=== PATIENT | male | born 1970 | race Caucasian/White ===

== ENCOUNTER 2017-08-08 16:30 | Outpatient (RCR) | payer OTHER, SELFPAY ==
--- NOTE | 2017-07-08 17:34 | HP.PTEVAL_ITS ---
Patient's Visit Information BRET ORTEZ is a 46 year old M referred to Physical Therapy by Michel MOON with a diagnosis of LEFT ACHILLES TENDON PAIN. Date of Evaluation: 07/08/17 Physical Therapist: Orlando Smith, PT, - Visit Plan Frequency: 2x /Week Duration: 4 Weeks Plan: ECCENTRIC EX'S CALF,MANUAL THERAPY HAWK- ACHILLES,STICK CAF,US ,CP , ESTIM. STRECTCING CALF/ACHILLES - Subjective Subjective: This 46 y/o male presents to physical therapy for left achilles tendon pain for 3months. No reason for pain ,noticed lump with soreness. Patient symptoms with on feet all day ,activity with sitting. Denies parathesia/ tingling. Symptoms affect job demands and housework tasks. SOCAIL: . VOCATION: ecletrician. HOBBIES: golfing - Pain Left Foot Pain Intensity (Out of 10): 6 Pain Intensity Range: 10 - Objective POSTURE: normal frontal plane mild pes planus. GAIT: normal odalis. PALPATION : DISTAL 1/3 ACHILLES TENDER. AROM: dorsiflexion 5 degrees,plantarflexion 60 degrees,inversion 35 degrees,10 eversion. MMT:ANKLE DF/PF/EV/IN /5. NUERO: inact. -ZAMORA TEST - Goals Goal 1:: Independant with HEP Goal Time Frame: 4-6 Weeks Goal 2:: Decrease left achilles pain by 60% or greater to improve function with walking and standing. Goal Time Frame: 4-6 Weeks Goal 3:: Patient to have no tenderness with palpation of achilles tendon. Goal Time Frame: 4-6 Weeks Goal 4:: Patient be able to perform ADLS' and job demands with symptoms Goal Time Frame: 4-6 Weeks - Rehabilitation Potential Physical Therapy Diagnosis: This patient has left achilles tendonesis with apin and tendeness ,thus benifit from skilled PT. Rehabilitation Potential: Good - Anticipated Interventions Patient/Client Instruction: Educate patient on: Condition, Plan of Care For the Purpose of:: To decrease pain, To increase ROM, To improve muscle performance and motor function, To increase tolerance to activity/condition/ position, To improve performance and independence with ADL's, To improve ability of physical actions for home/community/work/leisure, To improve health of tissue, To decrease soft tissue restriction, To increase flexibility/ROM, To improve ability to perform tasks related to life management Therapeutic Exercise to Include: Strength training, Flexibilty training Comment: ECCENTRICS For the Purpose of:: To decrease pain, To increase ROM, To improve nutrient delivery to tissue, To increase oxygenation perfusion, To improve muscle performance and motor function, To increase tolerance to activity/condition/ position, To improve ability of physical actions for home/community/work/leisure , To improve health of tissue, To decrease soft tissue restriction, To increase flexibility/ROM, To prevent re-injury, To improve ability to perform tasks related to life management Manual Therapy Techniques to Include: Soft tissue mobilization, Other Comment: HAWK ACHILLES For the Purpose of:: To decrease pain, To decrease swelling/inflammation, To increase ROM, To improve nutrient delivery to tissue, To increase oxygenation perfusion, To improve health of tissue, To decrease soft tissue restriction, To increase flexibility/ROM TENS: Yes Cryotherapy (ice pack, ice massage): Yes Thermo therapy (hot pack): Yes Ultrasound (thermal/non thermal): Yes For the Purpose of:: To decrease pain, To increase ROM, To improve nutrient delivery to tissue, To increase oxygenation perfusion, To improve health of tissue, To decrease soft tissue restriction, To increase flexibility/ROM Thank you for the opportunity to evaluate your patient. For Medicare and Medicare HMO plans, please review the plan of care and approve it. It will need to be FAXED BACK to us at [phone] for Medicare purposes. Please let me know if there are questions or concerns regarding this plan of care. Physician Signature: Date:
--- NOTE | 2017-08-08 18:06 | HP.PTDCSUM_ITS ---
HP - PT D/C Summary It has been my pleasure to treat BRET ORTEZ under orders from Michel Page , for the diagnosis of LEFT ACHILLES TENDON PAIN for a total of 9 visit(s). Discharge Date: 08/08/17 Please see the following information for a summary of their discharge status. - Subjective Subjective: doing better.I was on my feet alot past 4 days. - Pain Left Foot Pain Intensity (Out of 10): 1 - Objective Objective/Function: GAIT: NORMAL GAIT. NEURO:INACT. PAPALTION: less nodule achilles,with less tenderness. MMT: 4/5 ankle. FLEXABLITY: G-S WFL - Goals Goal 1:: Independant with HEP Goal Progress: Goal Met Goal 2:: Decrease left achilles pain by 60% or greater to improve function with walking and standing. Goal Progress: Goal Met Goal 3:: Patient to have no tenderness with palpation of achilles tendon. Goal Progress: Goal Met Goal 4:: Patient be able to perform ADLS' and job demands with symptoms Goal Progress: Goal Met Goal Progress: Goal Met - Plan Plan: D/C TO HEP - D/C Information If there are questions or concerns regarding this patient's physical therapy, please feel free to call me at [phone]. Thank you for the referral of this patient. Sincerely, Orlando Smith, PT,
== END 2017-08-08 19:00 | disposition home or self-care (01) ==
LOC: PT 16:30
PROVIDERS: Family Provider Family Medicine; PCP Family Medicine; Visit Provider Family Medicine
DX: M79.672 Pain in left foot (principal)
CPT/HCPCS: 97035; 97110; 97140; 97161

== ENCOUNTER → 2020-07-12 07:53 | Outpatient (CLI) | payer OTHER, SELFPAY ==
[2019-01-22 09:42] VITALS: BMI 33.1
--- NOTE | 2020-07-12 08:10 | RAD_ITS ---
STUDY: X-RAY - ESOPHAGUS (BARIUM SWALLOW) WITH FLUOROSCOPY REASON FOR EXAM: Male, 49 years old. Dysphagia TECHNIQUE: 13 view(s) of the esophagus were obtained following swallowing of barium. FLUOROSCOPY TIME (if supplied): (0:34) minutes/seconds COMPARISON: None. FINDINGS: There is no demonstrated esophageal foreign body. There is no demonstrated stricture or mucosal abnormality. Normal gastroesophageal junction, without a demonstrated hiatal hernia. The patient ingested a 12 mm tablet of barium. The tablet is trapped at the gastroesophageal junction. Normal visualized aortic arch and descending thoracic aorta. Normal visualized pulmonary parenchyma. Normal visualized osseous structures of the thorax. RAD/Esophagus Dual Contrast IMPRESSION: The ingested 12 mm tablet of barium is trapped at the gastroesophageal junction. Electronically Signed: Ortiz Contreras MD at 13:47 EDT , Service support ,
== END ==
PROVIDERS: PCP Family Medicine; Referring Provider Family Medicine; Visit Provider Family Medicine
DX: R13.10 Dysphagia, unspecified (principal)
CPT/HCPCS: 74221

== ENCOUNTER 2020-08-15 09:17 | Day surgery (SDC) | payer OTHER, SELFPAY ==
[2019-01-22 09:42] VITALS: BMI 33.1
[2020-08-15] VITALS (8 sets, daily range): BP systolic 93–141; BP diastolic 67–87; PULSE 66–78; RESP 16–18; TEMP 36.3–37; O2SAT 95–100; BMI 32.5
--- NOTE | 2020-08-15 | GASB_PTH ---
PATIENT: BRET ORTEZ LOC: U#:[id number] AGE/SX: 49/M ROOM: RE08/15/[address]: Dr. Olimpia Ragsdale MD : 1970 BED: DIS: 08/15/2020 SPEC #: [id number] RECD: 08/15/20 13:37 STATUS: SENG REQ #: [id number] SENTHIL: 08/15/20 00:[address]: Olimpia Ragsdale DEPT: SURGICAL PATHOLOGY RECD BY: Xavier Richardson ENTERED: 08/15/20 13:38 SP TYPE: Gastric Bx OTHR DR: Dr. Michel Page MD Tissues: Gastric mucous membrane Procedures: Surgery Specimen Level IV HEADER OPERATION: [place] [place] DIAGNOSIS: Foreign body TISSUE SUBMITTED: Antrum biopsy for H. pylori and path MICROSCOPIC DIAGNOSIS Gastric antrum, biopsy: Chronic gastritis. See comment. AM:yosvany 08/16/2020 COMMENT The results of immunohistochemistry for Helicobacter pylori will be reported separately ([id number]). MICROSCOPIC DESCRIPTION Slides are reviewed. GROSS DESCRIPTION Received in fixative is one container labeled with the patient's name and designated antrum biopsy. The specimen consists of one irregular fragment of light kauffman soft tissue that measures 0.3 x 0.3 x 0.1 cm. The specimen is totally submitted in one cassette. / SJ:rg 08/15/20 TC:3 CPT: 81111
--- NOTE | 2020-08-15 09:28 | EDS_ITS ---
HPI History of Present Illness Chief Complaint: Foreign Body Detail of Chief Complaint: Food impaction since last evening Informant: patient Onset/Context/Timing Onset: Yesterday Narrative Narrative: Patient was eating fried chicken from [employer] fried chicken last evening when he had an episode of food getting stuck in his throat. Patient states that he was initially able to clear the food impaction and and continue to eat and food got stuck once again in his throat. Patient has been unable to swallow liquids since that time. He has vomited more than 12 times. He denies any real abdominal pain. Patient has had problems with swallowing in the past and is scheduled to see a chainstitch felled seam operator but has not established as of yet. Patient is never had an EGD. Patient has had swallow evaluations. Patient states that he is normally able to clear the obstruction however this time he has been unable to. Prior similar symptoms: Yes PFSH PFSH Medical History (Updated 08/15/20 @ 09:[address] Sherri Garcia DO) ACL tear Hypersomnia Knee effusion Medial meniscus tear DIEGO (obstructive sleep apnea) Pain in joint involving lower leg Rotator cuff syndrome of right shoulder Shoulder pain Sprain and strain of unspecified site of knee and leg Home Medications multivitamin,zj-imcu-esaxzvxg 1 tab PO QDAY 05/30/17 [History Last Taken Unknown] Allergy/AdvReac Type Severity Reaction Status Date / Time No Known Allergies Allergy Verified 08/15/20 09:20 Family History Mother Heart disease Arthritis Ovarian cancer Surgical History (Updated 01/22/19 @ 15:[address] Dioni Wharton MD) history of ACL bilateral repair History of inguinal hernia repair Social History (Updated 01/22/19 @ 15:[address] Dioni Wharton MD) second hand exposure: No alcohol intake: never substance use type: does not use caffeine: No what type of physical activity do you participate in: walking frequency: daily ROS ROS ED Constitutional Constitutional ED: Reports systems reviewed and no addt'l complaints, except as documented; Denies body ache(s), change in weight or chills Eyes Eyes: Denies acute decrease in peripheral vision, change in vision, double vision or loss of vision ENT ENT ED: Reports none; Denies ear pain, lip swelling, loss taste/smell, neck pain, otalgia or sore throat Cardiovascular Cardiovascular: Reports none; Denies abdominal pain, chest pain with activity, leg edema, lightheadedness, palpitations, rapid heart rate or syncope Respiratory/Chest Respiratory/Chest: Reports none; Denies change in mental status, dry cough, dyspnea, hemoptysis, shortness of breath at rest or shortness of breath with exertion Gastrointestinal Gastrointestinal: Reports none, vomiting and other Details: Patient unable to swallow ; Denies abdominal pain, change in stool character, diarrhea, hematemesis, hematochezia, melena or rectal bleeding Genitourinary Genitourinary ED: Reports none; Denies abdominal discomfort, anuria, dysuria, genital pain or polyuria Musculoskeletal Musculoskeletal: Reports none; Denies arthralgias, back pain, difficulty walking, extremity pain, muscle weakness or myalgias Integumentary Reports none; Denies abscess or rash Neurologic Neurologic: Reports none; Denies abnormal gait, confusion, focal weakness, frequent falls, headache(s), loss of vision, numbness, paresthesias, radicular pain, vertigo or weakness Psychiatric Psychiatric: Reports systems reviewed and no addt'l complaints, except as documented and none; Denies behavioral changes, confusion, difficulty concentrat ing, hallucinations, suicidal ideation, tactile hallucinations or visual hallucinations Endocrine Endocrinology: Denies none, cold intolerance, excessive sweating, fatigue or heat intolerance Hematologic/Lymphatic Hematologic/Lymphatic: Reports none; Denies anemia, easy bleeding or easy bruising Allergic/Immunologic Allergic/Immunologic ED: Denies as per HPI, none, lip swelling, mouth swelling, throat swelling, tongue swelling or hives EXAM Physical Exam Const Vital Signs: 08/15/20 09:17 Temperature 97.6 F L Temperature Source Temporal Pulse Rate 73 Respiratory Rate 18 Blood Pressure 141/79 H Blood Pressure Mean 99 Pulse Ox 95 Oxygen Delivery Method Room Air Positive well nourished and well developed General Appearance ED: well developed and NAD HEENT Reports TM's clear and moist mucous membranes normocephalic and atraumatic; Negative for trauma or tenderness Tympanic Membrane ED: Yes TM's clear Eyes PERRL and EOMs intact bilaterally General Eye ED: Negative for pale conjunctiva or scleral icterus Neck no lymphadenopathy, supple and no JVD General: Negative for tenderness Chest Wall inspection of chest normal and palpation of chest normal Chest: Negative for tenderness Resp normal respiratory effort and clear to auscultation bilaterally Effort and Inspection: Negative for respiratory distress or pain with movement Auscultation: Negative for rhonchi, wheezes or diminished lung sounds Cardio regular rate, regular rhythm, S1 normal heart sound, S2 normal heart sound and no murmurs Peripheral Pulses: pulses 2+ throughout GI normal to inspection, nondistended, normoactive bowel sounds, soft to palpation, non-tender, non-distended and no masses Back/Spine no CVA tenderness and no thoracic nor lumbar tenderness Extremity normal to inspection General Extremety ED: Negative for edema General Extremity: Negative for edema Neuro oriented x3, CN's II-XII intact bilaterally, no sensory deficits noted and gait normal Sensorium / Orientation: awake, alert, oriented to person, oriented to place and oriented to time Motor Exam: strength 5/5 throughout and strength abnormal Psych mental status grossly normal Skin no rashes or lesions noted and no wounds MDM MDM MDM Narrative Medical decision making narrative: Patient will receive glucagon IV. He was unable to swallow fluids here. Case discussed with general surgeon on-call Dr. Olimpia Ragsdale who will take patient to endoscopy suite for EGD. Discharge Plan Triage Chief Complaint: Foreign Body ED Provider: Sherri Garcia Dx/Rx/DC Orders Clinical Impression: Distal esophageal obstruction due to foreign body Prescriptions: No Action multivitamin,as-jxpe-sfajkyvm tablet tablet 1 tab PO QDAY RF: 0 Primary Care Provider: Michel Page Referrals: Michel Page MD [Primary Care Provider] - Disposition Disposition: [facility]
--- NOTE | 2020-08-15 09:51 | NURSING ---
ENDO .. AC 5 ROBOTHAM FB REMOVAL
[2020-08-15] MEDS: Glucagon 1 MG/ML Syringe 2 MG IV (09:53)
--- NOTE | 2020-08-15 09:57 | HP.PCM_ITS ---
HPI - General HPI Narrative BRET ORTEZ, is a 49 M who presents to the ED with esophageal foreign body. Patient states he had chicken for dinner last night. A single piece of chicken was stuck and he was able to eventually have this go down. He continued to eat however the remaining pieces of chicken became lodged. He tried water without success. He noted nausea and vomiting up until 0500 AM this morning attempting to dislodge the chicken. He does not take any routine medications daily. He states this typically happens at least once per week. he is able to resolve the issue without coming into the hospital. His PCP ordered a barium swallow which was completed on 07/12 and demonstrated the Barium tablet was lodged at the GE junction. He was scheduled an appointment with Dr. Mitchell at the end of this month. He denies cardiac, pulmonary history. He denies previous complications with anesthesia. [facility] Medical History ACL tear Hypersomnia Knee effusion Medial meniscus tear DIEGO (obstructive sleep apnea) Pain in joint involving lower leg Rotator cuff syndrome of right shoulder Shoulder pain Sprain and strain of unspecified site of knee and leg Home Medications multivitamin,ab-ills-frrhkbka 1 tab PO QDAY 05/30/17 [History Last Taken Unknown] Allergy/AdvReac Type Severity Reaction Status Date / Time No Known Allergies Allergy Verified 08/15/20 09:20 Family History Mother Heart disease Arthritis Ovarian cancer Surgical History history of ACL bilateral repair History of inguinal hernia repair Social History (Updated 01/22/19 @ 15:[address] Dioni Wharton MD) Smoking Status: Never smoker second hand exposure: No alcohol intake: never substance use type: does not use caffeine: No what type of physical activity do you participate in: walking frequency: daily ROS Constitutional Constitutional: Reports systems reviewed and no addt'l complaints, except as documented Eyes Eyes: Reports systems reviewed and no addt'l complaints, except as documented ENT HEENT: Reports sore throat Cardiovascular Cardiovascular: Reports systems reviewed and no addt'l complaints, except as documented Respiratory/Chest Respiratory/Chest: Reports systems reviewed and no addt'l complaints, except as documented Gastrointestinal Gastrointestinal: Reports dysphagia Genitourinary Genitourinary: Reports none Musculoskeletal Musculoskeletal: Reports none Integumentary Integumentary: Reports none Neurologic Neurologic: Reports none Psychiatric Psychiatric: Reports none Endocrine Endocrinology: Reports none Hematologic/Lymphatic Hematologic/Lymphatic: Reports none Allergic/Immunologic Allergic/Immunologic: Reports none Vital Signs Vital Signs Vital Signs: 08/15/20 09:17 08/15/20 09:55 Temperature 97.6 F L Temperature Source Temporal Pulse Rate 73 Respiratory Rate 18 Respiratory Effort Normal Non-Labored Respiratory Pattern Normal Blood Pressure 141/79 H Blood Pressure Mean 99 Pulse Ox 95 Oxygen Delivery Method Room Air Physical Exam Const alert and oriented x3 General Appearance: cooperative, comfortable, well kempt and well developed HEENT normocephalic Eyes PERRL Neck Thyroid: Negative for mass Carotids: normal carotid upstroke Lymph Lymphatic: no lymphadenopathy noted Chest inspection of chest normal Resp normal respiratory effort and normal air movement Cardio regular rate and regular rhythm GI normal to inspection, nondistended, normoactive bowel sounds no CVA tenderness Back/Spine Cervical Spine: cervical ROM normal Thoracic Spine / Upper Back: normal to inspection Extremity normal to inspection Skin no rashes or lesions noted Neuro CN's II-XII intact bilaterally Psych mental status grossly normal Assessment & Plan Assessment/Plan (1) Distal esophageal obstruction due to foreign body: Status: Acute Code(s): T18.108A - Unspecified foreign body in esophagus causing other injury, initial encounter Plan: I am following this patient in conjunction with Dr. Ragsdale. I have discussed this patient with Dr. Ragsdale. Dr. Ragsdale will plan to perform an upper scope with foreign body removal under MAC sedation. Procedure details, risks and benefits have been explained to the patient. His is an RN at [employer]. Patient and his have had the opportunity to ask and have questions answered. Patient verbally understands and agrees with the plan. Patient has completed is 2nd COVID vaccine approximately 2 weeks ago. He did obtain a COVID test in the ED. ED physician ordered glucagon. Thank you for allowing us to participate in this patient's care. Visit Charges OBSV E&M: 85303 Initial observation care L2
--- NOTE | 2020-08-15 10:58 | OP.EGD_ITS ---
Patient Name: Hima Veloz Procedure Date: 08/15/2020 10:34 AM Date of : 1970 Age: 49 Procedure: Upper GI endoscopy Indications: Foreign body in the esophagus Providers: Olimpia Ragsdale MD Medicines: Monitored Anesthesia Care Patient Profile: This is a 49 year old male. Complications: No immediate complications. Procedure: Pre-Anesthesia Assessment: - Prior to the procedure, a History and Physical was performed, and patient medications and allergies were reviewed. The patient's tolerance of previous anesthesia was also reviewed. The risks and benefits of the procedure and the sedation options and risks were discussed with the patient. All questions were answered, and informed consent was obtained. Prior Anticoagulants: The patient has taken no previous anticoagulant or antiplatelet agents. ASA Grade Assessment: Per anesthesia. After reviewing the risks and benefits, the patient was deemed in satisfactory condition to undergo the procedure. After obtaining informed consent, the endoscope was passed under direct vision. Throughout the procedure, the patient's blood pressure, pulse, and oxygen saturations were monitored continuously. The gastroscope was introduced through the mouth, and advanced to the second part of duodenum. The upper GI endoscopy was accomplished without difficulty. The patient tolerated the procedure well. Scope In: 10:40:08 AM Scope Out: 10:50:33 AM Total Procedure Duration Time 0 hours 10 minutes 25 seconds Findings: Food was found in the distal esophagus. The endoscope was removed, and an overtube with cap was fitted. The scope and overtube were then reinserted via the mouth and advanced to the esophagus to aid in foreign body removal. Removal was accomplished with a Quevedo net. The examined duodenum was normal. Striped moderately erythematous mucosa was found in the gastric antrum. Biopsies were taken with a cold forceps for histology. Biopsies were taken with a cold forceps for Helicobacter pylori cultures. No obvious stricture seen at GEJ Impression: - Food was found in the esophagus. Removal was successful. - Normal examined duodenum. - Erythematous mucosa in the antrum. Biopsied. - An overtube with cap was used to aid in foreign body removal. Recommendation: - Discharge patient to home. - Soft diet. - Use Protonix (pantoprazole) 40 mg PO daily. - Continue present medications. Procedure Code(s): --- Professional --- 88208, Esophagogastroduodenoscopy, flexible, transoral; with removal of foreign body(s) 55664, Esophagogastroduodenoscopy, flexible, transoral; with biopsy, single or multiple Diagnosis Code(s): --- Professional --- T18.128A, Food in esophagus causing other injury, initial encounter K31.89, Other diseases of stomach and duodenum T18.108A, Unspecified foreign body in esophagus causing other injury, initial encounter CPT copyright 2017 [employer]. All rights reserved. The codes documented in this report are preliminary and upon table maker review may be revised to meet current compliance requirements. MD Olimpia Ventura MD 08/15/2020 10:58:18 AM This report has been signed electronically. Number of Addenda: 0 Note Initiated On: 08/15/2020 10:34 AM
--- NOTE | 2020-08-15 10:58 | OP.CCLET_ITS ---
08/15/2020 Michel Page MD [address] [id number] Re : Upper GI endoscopy procedure for Hima Veloz Dear Dr. Page This procedure was performed on Saturday, August 15, 2020. My impressions and recommendations are as follows: Impressions : - Food was found in the esophagus. Removal was successful. - Normal examined duodenum. - Erythematous mucosa in the antrum. Biopsied. - An overtube with cap was used to aid in foreign body removal. Recommendations : - Discharge patient to home. - Soft diet. - Use Protonix (pantoprazole) 40 mg PO daily. - Continue present medications. My findings are described in the full procedure note, which is enclosed. If I can be of further assistance, please feel free to contact me at Doctor phone number(s): , Work: . Sincerely, MD Olimpia Ventura MD 08/15/2020 10:58:18 AM This report has been signed electronically.
--- NOTE | 2020-08-15 11:15 | IMM_PTH ---
PATIENT: BRET ORTEZ LOC: U#:[id number] AGE/SX: 49/M ROOM: RE08/15/[address]: Dr. Olimpia Ragsdale MD : 1970 BED: DIS: 08/15/2020 SPEC #: [id number] RECD: 08/15/20 14:16 STATUS: SENG REQ #: [id number] SENTHIL: 08/15/20 11:[address]: Olimpia Ragsdale DEPT: IMMUNOHISTOCHEMISTRY RECD BY: Alecia Carnes ENTERED: 08/15/20 14:16 SP TYPE: IMMUNO OTHR DR: Dr. Michel Page MD Tissues: Stomach, NOS Procedures: H Pylori (initial) PHYSICIAN & INSTITUTION [place] [id number] SPECIMEN INFORMATION: Tissue Source: Antrum biopsy Clinical Info: Foreign body Specimen Number: [id number] CPT code: 13601 METHODOLOGY: Deparaffinized sections of prefer/formalin-fixed tissue or PAP/DQ stained slides are incubated with monoclonal/polyclonal antibodies/oligonucleotide probes. Localization is made via biotin free immunoperoxidase method. Appropriate controls are performed and reacted as expected. Results on target cell population are indicated in the following table: RESULTS: ANTIBODY / CLONE RESULT H Pylori (polyclonal) negative These tests were developed and their performance characteristics determined by [facility]. They may not have been cleared or approved by the U.S. Food and Drug Administration. The FDA has determined that such clearance or approval is not necessary. INTERPRETATION: Antrum biopsy: Negative for Helicobacter pylori organisms. AM:yosvany 08/17/2020
== END 2020-08-15 11:55 ==
LOC: ED 09:54 → AC 09:56 → ACINP 09:57
PROVIDERS: Emergency Provider Emergency Medicine; PCP Family Medicine; Visit Provider Surgery
PROC: 0DJ08ZZ Inspection of Upper Intestinal Tract, Via Natural or Artificial Opening Endoscopic (ICD-10-PCS; CPT 43235; principal; 2020-08-15 11:10)
DX: T18.118A Gastric contents in esophagus causing other injury, initial encounter (principal); K29.50 Unspecified chronic gastritis without bleeding
CPT/HCPCS: 43239; 43247; 87426; 88305; 88342; 99282; J7030; J1610; J2405

== ENCOUNTER 2021-02-16 07:00 | Outpatient (RCR) | payer OTHER, SELFPAY ==
[2019-01-22 09:42] VITALS: BMI 33.1
--- NOTE | 2021-03-27 17:24 | DS.PCM_ITS ---
Massage Therapy Discharge Summary: Initial Evaluation Date: 07/14/20 Diagnosis: Back Pain No. of Visits: 7 Date of last visit: 02/16/21 This patient is being discharged from our care at the [facility]. Thank you, Renee Reddy LMT
== END 2021-02-16 19:00 | disposition home or self-care (01) ==
LOC: MASS 07:00
PROVIDERS: PCP Family Medicine; Referring Provider Family Medicine; Visit Provider Family Medicine
DX: M54.9 Dorsalgia, unspecified (principal)
CPT/HCPCS: 97124

== ENCOUNTER → 2022-01-25 | Outpatient (CLI) | payer OTHER, SELFPAY ==
[2022-01-25 11:24] LABS: Anion Gap 7 (5-15); BUN 25 mg/dL (7-18); BUN/Creat Ratio 23.6 RATIO (10-20); Calcium,Total 9.4 mg/dL (8.5-10.1); Chloride 109 mmol/L (98-107); Cholesterol 151 mg/dL (200); Creatinine, Serum 1.06 mg/dL (0.70-1.30); EST Glomerular Filtration Rate 79 mL/min (>60); Est Glom Filt Rate - Afr Amer 95 mL/min (>60); Glucose 108 mg/dL (74-106); High Density Lipoprotein 38 mg/dL; PSA,Total - Annual Screen 7.85 ng/mL (0.00-4.00); Potassium 4.2 mmol/L (3.5-5.1); Sodium Level 140 mmol/L (136-145); Triglycerides 67 mg/dL; Very Low Density Lipoprotein 13 mg/dL (5-40)
== END | disposition home or self-care (01) ==
LOC: MFPLAB 09:03
PROVIDERS: PCP Family Medicine; Referring Provider Family Medicine; Visit Provider Family Medicine
DX: Z00.00 Encounter for general adult medical examination without abnormal findings (principal); Z12.5 Encounter for screening for malignant neoplasm of prostate
CPT/HCPCS: 36415; 80048; 80061; 84153; 84403; 84443; G0103

== ENCOUNTER → 2022-03-05 | Outpatient (CLI) | payer OTHER, SELFPAY ==
--- NOTE | 2022-03-05 17:55 | MRI_ITS ---
STUDY: MR PELVIS WITH T WITHOUT CONTRAST REASON FOR EXAM: Male, 51 years old. ELEVATED PROSTATE SPECIFIC ANTIGEN TECHNIQUE: Standardized fat and water weighted pulse sequences were obtained in all 3 orthogonal planes, pre-and post contrast administration. with and without IV 24ML CLARISCAN contrast material was administered intravenously for the contrast portion of the examination. COMPARISON: None. FINDINGS: Normal urinary bladder. Normal visualized colon. Prostate gland: 10 mm well circumscried lesion in the right peripheral zone. Se 11 IM 29. It has increased DWI signal and low ADC signal. No significant enhancement. PZpl right. The anterior fibromuscular stroma and central zone appear intact. The central gland demonstrates normal signal characteristics. Rectum is unremarkable. Levator ani muscle is not disrupted. The distal urethra is surrounded by the low T2 signal intensity muscle which is the external urethral sphincter as noted on the coronal images. The penile bulb is embraced by an intact inferomedial levator ani muscle. No areas of abnormal enhancement. Normal visualized neurovascular bundles. There is no pelvic fluid. There is no pelvic mass lesion or lymphadenopathy. Normal visualized pelvic arteries. Normal osseous structures. Normal abdominal wall. MRI/Pelvis W/WO Contrast IMPRESSION: There is a mass in the right peripheral zone PZpl measuring 10 mm. Assessment: PIRADS 4 - High. Clinically significant cancer is likely to be present. Electronically Signed: Arben Brunner MD at 15:41 EST ,
== END | disposition home or self-care (01) ==
PROVIDERS: PCP Family Medicine; Referring Provider Urology; Visit Provider Urology
DX: R97.20 Elevated prostate specific antigen [PSA] (principal)
CPT/HCPCS: 72197; A9575

== ENCOUNTER → 2022-03-13 | Outpatient (CLI) | payer OTHER, SELFPAY ==
--- NOTE | 2022-03-13 | IMM_PTH ---
PATIENT: BRET ORTEZ LOC: [facility] U#:[id number] AGE/SX: 51/M ROOM: RE03/13/[address]: Dr. Edmond Dela Cruz MD : 1970 BED: DIS: 03/13/2022 SPEC #: [id number] RECD: 03/15/22 13:48 STATUS: SENG REQ #: [id number] SENTHIL: 03/13/22 00:[address]: Edmond Dela Cruz DEPT: IMMUNOHISTOCHEMISTRY RECD BY: Alecia Carnes ENTERED: 03/15/22 13:50 SP TYPE: IMMUNO OTHR DR: Dr. Michel Page MD Tissues: A - PROSTATE RIGHT B - PROSTATE RIGHT C - PROSTATE RIGHT D - PROSTATE LEFT E - PROSTATE LEFT F - PROSTATE LEFT Procedures: 34BE12 (add) P40 (add) 34BE12 (initial) PHYSICIAN & INSTITUTION [place] [id number] SPECIMEN INFORMATION: Tissue Source: A - Right apex, B - Right mid, C - Right base, D - Left apex, E - Left mid, F - Left base Clinical Info: Elevated PSA Specimen Number: [id number] CPT code: 23267, 11929 x11 METHODOLOGY: Deparaffinized sections of prefer/formalin-fixed tissue or PAP/DQ stained slides are incubated with monoclonal/polyclonal antibodies/oligonucleotide probes. Localization is made via biotin free immunoperoxidase method. Appropriate controls are performed and reacted as expected. Results on target cell population are indicated in the following table: RESULTS: ANTIBODY / CLONE RESULT Block A P40 (BC28) negative 34BE12 (34BE12) negative Block B P40 (BC28) negative 34BE12 (34BE12) negative Block C P40 (BC28) negative 34BE12 (34BE12) negative Block D P40 (BC28) positive 34BE12 (34BE12) positive Block E P40 (BC28) positive 34BE12 (34BE12) positive Block F P40 (BC28) positive 34BE12 (34BE12) positive These tests were developed and their performance characteristics determined by [facility]. They may not have been cleared or approved by the U.S. Food and Drug Administration. The FDA has determined that such clearance or approval is not necessary. The above immunohistochemical/dualISH markers are ordered and reviewed by the Pathologist. INTERPRETATION: A. Right prostate, apex, core biopsy: Consistent with atypical small acinar proliferation. B. Right prostate, mid, core biopsy: Adenocarcinoma. C. Right prostate, base, core biopsy: Adenocarcinoma. D. Left prostate, apex, core biopsy: Negative for carcinoma. E. Left prostate, mid, core biopsy: Negative for carcinoma. F. Left prostate, base, core biopsy: Negative for carcinoma. AM:yosvany 03/16/2022
--- NOTE | 2022-03-13 08:00 | PROSBIL_PTH ---
PATIENT: BRET ORTEZ LOC: [facility] U#:[id number] AGE/SX: 51/M ROOM: RE03/13/[address]: Dr. Edmond Dela Cruz MD : 1970 BED: DIS: 03/13/2022 SPEC #: [id number] RECD: 03/13/22 16:17 STATUS: SENG REGisselle #: [id number] SENTHIL: 03/13/22 08:[address]: Edmond Dela Cruz DEPT: SURGICAL PATHOLOGY RECD BY: Abby Juárez ENTERED: 03/14/22 09:00 SP TYPE: PROST BX SOL DR: Dr. Michel Page MD Tissues: A - PROSTATE RIGHT B - PROSTATE RIGHT C - PROSTATE RIGHT D - PROSTATE LEFT E - PROSTATE LEFT F - PROSTATE LEFT Procedures: PROSTATE BX HEADER OPERATION: Prostate biopsy PRE-OP DIAGNOSIS: Elevated PSA TISSUE SUBMITTED: A - Right apex, B - Right mid, C - Right base, D - Left apex, E - Left mid, F - Left base MICROSCOPIC DIAGNOSIS A. Right prostate, apex, core biopsy: Focal atypical small acinar proliferation. See comment. B. Right prostate, mid, core biopsy: Adenocarcinoma. [place] grade: 8 (5+3) Cores involved: 1 of 2 cores Tissue involved: 40% Greatest tumor length: 5.5 millimeters Perineural invasion: Present See comment. C. Right prostate, base, core biopsy: Adenocarcinoma. [place] grade: 8 (5+3) Cores involved: 2 of 2 cores Tissue involved: 50% Greatest tumor length: 6.5 millimeters Perineural invasion: Present See comment. D. Left prostate, apex, core biopsy: Benign prostatic tissue. See comment. E. Left prostate, mid, core biopsy: Benign prostatic tissue. See comment. F. Left prostate, base, core biopsy: Focal high-grade prostatic intraepithelial neoplasia (HGPIN). See comment. AM:yosvany 03/15/2022 COMMENT A-F. Immunohistochemistry ([id number]) supports the above diagnosis. MICROSCOPIC DESCRIPTION Slides are reviewed. GROSS DESCRIPTION A - Received is one container designated prostate, right apex. The specimen consists of one elongated fragment of light kauffman-white soft tissue measuring 1 cm in length and 0.1 cm in diameter. The specimen is totally submitted in one cassette. B - Received is one container designated prostate, right mid. The specimen consists of two elongated fragments of light kauffman-white soft tissue each measuring 1 cm in length and 0.1 cm in diameter. The specimen is totally submitted in one cassette. C - Received is one container designated prostate, right base. The specimen consists of two elongated fragments of light kauffman-white soft tissue each measuring 1.5 cm in length and 0.1 cm in diameter. The specimen is totally submitted in one cassette. D - Received is one container designated prostate, left apex. The specimen consists of one elongated fragment of light kauffman-white soft tissue measuring 1 cm in length and 0.1 cm in diameter. The specimen is totally submitted in one cassette. E - Received is one container designated prostate, left mid. The specimen consists of two elongated fragments of light kauffman-white soft tissue each measuring 1 cm in length and 0.1 cm in diameter. The specimen is totally submitted in one cassette. F - Received is one container designated prostate, left base. The specimen consists of two elongated fragments of light kauffman-white soft tissue each measuring 1.5 cm in length and 0.1 cm in diameter. The specimen is totally submitted in one cassette. / AM:yosvany 03/14/2022 TC:0 CPT: 73486 x6
--- NOTE | 2022-03-13 08:00 | PROSBIL_PTH ---
PATIENT: BRET ORTEZ LOC: [facility] U#:[id number] AGE/SX: 51/M ROOM: RE03/13/[address]: Dr. Edmond Dela Cruz MD : 1970 BED: DIS: 03/13/2022 SPEC #: [id number] RECD: 03/13/22 16:17 STATUS: SENG REGisselle #: [id number] SENTHIL: 03/13/22 08:[address]: Edmond Dela Cruz DEPT: SURGICAL PATHOLOGY RECD BY: Abby Juárez ENTERED: 03/14/22 09:00 SP TYPE: PROST BX SOL DR: Dr. Michel Page MD Tissues: A - PROSTATE RIGHT B - PROSTATE RIGHT C - PROSTATE RIGHT D - PROSTATE LEFT E - PROSTATE LEFT F - PROSTATE LEFT Procedures: PROSTATE BX HEADER OPERATION: Prostate biopsy PRE-OP DIAGNOSIS: Elevated PSA TISSUE SUBMITTED: A - Right apex, B - Right mid, C - Right base, D - Left apex, E - Left mid, F - Left base MICROSCOPIC DIAGNOSIS A. Right prostate, apex, core biopsy: Focal atypical small acinar proliferation. See comment. B. Right prostate, mid, core biopsy: Adenocarcinoma. [place] grade: 8 (5+3) Cores involved: 2 of 2 cores Tissue involved: 40% Greatest tumor length: 5.5 millimeters Perineural invasion: Present See comment. C. Right prostate, base, core biopsy: Adenocarcinoma. Frank[place] grade: 8 (5+3) Cores involved: 2 of 2 cores Tissue involved: 50% Greatest tumor length: 6.5 millimeters Perineural invasion: Present See comment. D. Left prostate, apex, core biopsy: Benign prostatic tissue. See comment. E. Left prostate, mid, core biopsy: Benign prostatic tissue. See comment. F. Left prostate, base, core biopsy: Focal high-grade prostatic intraepithelial neoplasia (HGPIN). See comment. AM:yosvany 03/15/2022 AM:yosvany 03/19/2022 COMMENT A-F. Immunohistochemistry ([id number]) supports the above diagnosis. MICROSCOPIC DESCRIPTION Slides are reviewed. GROSS DESCRIPTION A - Received is one container designated prostate, right apex. The specimen consists of one elongated fragment of light kauffman-white soft tissue measuring 1 cm in length and 0.1 cm in diameter. The specimen is totally submitted in one cassette. B - Received is one container designated prostate, right mid. The specimen consists of two elongated fragments of light kauffman-white soft tissue each measuring 1 cm in length and 0.1 cm in diameter. The specimen is totally submitted in one cassette. C - Received is one container designated prostate, right base. The specimen consists of two elongated fragments of light kauffman-white soft tissue each measuring 1.5 cm in length and 0.1 cm in diameter. The specimen is totally submitted in one cassette. D - Received is one container designated prostate, left apex. The specimen consists of one elongated fragment of light kauffman-white soft tissue measuring 1 cm in length and 0.1 cm in diameter. The specimen is totally submitted in one cassette. E - Received is one container designated prostate, left mid. The specimen consists of two elongated fragments of light kauffman-white soft tissue each measuring 1 cm in length and 0.1 cm in diameter. The specimen is totally submitted in one cassette. F - Received is one container designated prostate, left base. The specimen consists of two elongated fragments of light kauffman-white soft tissue each measuring 1.5 cm in length and 0.1 cm in diameter. The specimen is totally submitted in one cassette. / AM:yosvany 03/14/2022 TC:0 CPT: 12088 x6
== END | disposition home or self-care (01) ==
LOC: LABSPEC 16:49
PROVIDERS: PCP Family Medicine; Visit Provider Urology
DX: C61 Malignant neoplasm of prostate (principal); R97.20 Elevated prostate specific antigen [PSA]
CPT/HCPCS: 88305; 88341; 88342; G0416

== ENCOUNTER → 2022-03-28 | Outpatient (CLI) | payer OTHER, SELFPAY ==
--- NOTE | 2022-03-28 09:23 | NM_ITS ---
CLINICAL: 51-year-old male with history of primary prostate carcinoma. WHOLE BODY 99m Tc MDP RADIONUCLIDE BONE SCINTIGRAPHY COMPARISON: None available FINDINGS: Following the intravenous administration of 24.7 mCi of 99m Tc MDP, whole body bone images reveal: 1. Increased radiopharmaceutical is defined in the fifth lumbar vertebra posteriorly on the left and right, the patellofemoral compartments of both knees, the acromioclavicular compartments of both shoulders. 2. The remaining skeletal structures are scintigraphically unremarkable with normal-appearing renal images and urinary bladder activity identified. NM/Bone Scan Whole Body IMPRESSION: 1. The increase in radiotracer concentration defined in the bilateral shoulders, fifth lumbar vertebra and the articulations bilaterally is most consistent with degenerative arthritis. 2. There is no definitive scintigraphic evidence of diffuse axial skeletal metastatic disease on the current examination. Electronically Signed: Ludwig Narayan, at 21:51 EST ,
== END | disposition home or self-care (01) ==
LOC: NM 09:21
PROVIDERS: PCP Family Medicine; Referring Provider Urology; Visit Provider Urology
DX: C61 Malignant neoplasm of prostate (principal)
CPT/HCPCS: 78306; A9503

== ENCOUNTER → 2022-07-04 | Outpatient (CLI) | payer OTHER, SELFPAY ==
--- NOTE | 2022-07-04 15:45 | RAD_ITS ---
STUDY: X-RAY - RIGHT SHOULDER REASON FOR EXAM: Male, 51 years old. PAIN TECHNIQUE: 3 view(s) of the shoulder. COMPARISON: None. FINDINGS: Narrowed glenohumeral articulation. Normal acromioclavicular joint. Normal acromion. Normal humeral head and visualized proximal humerus. Tiny focus of periarticular calcification consistent with calcific tendinitis. Normal visualized pulmonary apex. RAD/Shoulder min 2 Views IMPRESSION: Degenerative changes. No acute fracture or other significant bony pathology Electronically Signed: Duke Jackson MD at 16:51 EDT ,
== END | disposition home or self-care (01) ==
LOC: MTRAD 15:44
PROVIDERS: PCP Family Medicine; Visit Provider Family Medicine
DX: M25.511 Pain in right shoulder (principal)
CPT/HCPCS: 73030

== ENCOUNTER → 2022-07-23 | Outpatient (CLI) | payer OTHER, SELFPAY ==
[2022-07-23 10:54] LABS: PSA,Total- Diagnostic < 0.01 ng/mL (0.0-4.0)
== END | disposition home or self-care (01) ==
LOC: LAB 09:41
PROVIDERS: PCP Family Medicine
DX: C61 Malignant neoplasm of prostate (principal)
CPT/HCPCS: 36415; 84153

== ENCOUNTER → 2022-11-01 | Outpatient (CLI) | payer OTHER, SELFPAY ==
[2022-11-01 17:19] LABS: PSA,Total- Diagnostic < 0.01 ng/mL (0.0-4.0)
== END | disposition home or self-care (01) ==
LOC: LAB 15:52
PROVIDERS: PCP Family Medicine; Referring Provider Urology; Visit Provider Urology
DX: C61 Malignant neoplasm of prostate (principal)
CPT/HCPCS: 36415; 84153

== ENCOUNTER 2023-01-28 14:06 | Emergency (ER) | payer OTHER, SELFPAY ==
[2023-01-28 14:07] VITALS: BP 160/86; PULSE 79; RESP 16; TEMP 36.2; O2SAT 100; BMI 33.7
[2023-01-28] MEDS: Lidocaine 1% (20 ml mdv) 20 ML Vial INFILT (15:07)
[2023-01-28] MEDS: Diphth,Pertuss(Acell),Tet Vac 0.5 ML Vial IM (15:08)
--- NOTE | 2023-01-28 15:20 | EX.ED.UPPERE ---
HPI History of Present Illness HPI Narrative: Patient presents with left hand laceration that occurred today. Patient is right-hand dominant. Patient states he was using a razor knife when it slipped and cut his left hand. Patient is unsure of his last tetanus. Patient denies any paresthesias or weakness. Patient states the bleeding stopped after several minutes with pressure. Patient denies any other injuries. Chief Complaint: Laceration Informant: patient Onset/Context/Timing Onset: Today Context: Sudden Onset Timing: Continuous Location: Left hand Worsened by: Movement Relieved by: Pressure Associated Symptoms Associated Symptoms: Negative for Parasthesia or Weakness Narrative Tetanus Immunization: Unknown [facility] Medical History ACL tear Hypersomnia Knee effusion Medial meniscus tear DIEGO (obstructive sleep apnea) Pain in joint involving lower leg Rotator cuff syndrome of right shoulder Shoulder pain Sprain and strain of unspecified site of knee and leg Home Medications multivitamin,[id number] (Complete Multivitamin tablet) 1 tab PO QDAY 05/30/17 [History Last Taken Unknown] pantoprazole 40 mg tablet,delayed release 40 mg PO DAILY #30 tabs 08/15/20 [Rx Last Taken Unknown] meloxicam 15 mg tablet mg PO DAILY 01/28/23 [History Last Taken Unknown] tadalafil 5 mg tablet mg PO DAILY 01/28/23 [History Last Taken Unknown] Allergy/AdvReac Type Severity Reaction Status Date / Time No Known Allergies Allergy Verified 01/28/23 14:08 Family History (Updated 03/07/22 @ 09:11 by Sara Epps) Mother Heart disease Arthritis Ovarian cancer Grandfather Colon cancer Surgical History history of ACL bilateral repair History of colonoscopy History of inguinal hernia repair Social History Smoking Status: Never smoker second hand exposure: No alcohol intake: never substance use type: does not use caffeine: No what type of physical activity do you participate in: walking frequency: daily ROS ROS ED Constitutional Constitutional ED: Denies chills or fever(s) Eyes Eyes: Denies blurry vision or change in vision ENT ENT ED: Denies rhinorrhea or sore throat Cardiovascular Cardiovascular: Denies chest pain or palpitations Respiratory/Chest Respiratory/Chest: Denies cough or dyspnea Gastrointestinal Gastrointestinal: Denies nausea or vomiting Genitourinary Genitourinary ED: Denies dysuria or hematuria Musculoskeletal Musculoskeletal: Denies back pain or neck pain Integumentary Denies abscess or rash Neurologic Neurologic: Denies headache(s) or weakness Allergic/Immunologic Allergic/Immunologic ED: Denies mouth swelling or urticaria EXAM Physical Exam Const Vital Signs: 01/28/23 14:07 Temperature 97.1 F L Temperature Source Temporal Pulse Rate 79 Respiratory Rate 16 Blood Pressure 160/86 H Blood Pressure Mean 110 Pulse Ox 100 Positive well nourished and well developed General Appearance ED: well developed and NAD HEENT Reports moist mucous membranes Neck full ROM and supple Extremity Extremity Narrative: There is a 5 cm full-thickness linear laceration over the dorsal aspect of the left hand between the first and second metacarpals. There is moderate gapping of the wound margins. There are no foreign bodies noted. There is minimal bleeding noted. Strength is 5/5 in the radial, median, and ulnar areas. Sensation was intact to light touch in the radial, median, and ulnar areas. Radial pulses are equal bilaterally. There is full range of motion. Neuro oriented x3, CN's II-XII intact bilaterally, moves all extremities, no focal motor deficits and no sensory deficits noted Sensorium / Orientation: alert Motor Exam: strength 5/5 throughout Psych mental status grossly normal MDM MDM MDM Narrative Medical decision making narrative: The wound was cleaned and irrigated with copious amounts of normal saline. The wound was anesthetized with 1% plain lidocaine locally. The wound was closed with 8 simple interrupted #4-0 nylon sutures under sterile technique. Patient tolerated the procedure well. Bacitracin dressing was applied. Patient was given a tetanus booster. Patient was instructed to keep the wound clean and dry. Patient was instructed to follow-up with his primary care physician in 5 to 7 days. Patient understood and was agreeable with the plan. All questions were answered. Procedures Lacerations Left hand: Length: 5 cm Depth: Sub Q Shape: Linear Prep: Sterile Conditions and Chlorhexadine Laceration repair: Irrigated, Lidocaine, Local and Skin sutures Irrigated (ml): 100 Number of Sutures/Olaf: 8 Suture Information: Ethilon, Simple and 4-0 Discharge Plan Triage Chief Complaint: Laceration ED Provider: Manuelito Escalante Dx/Rx/DC Orders Clinical Impression: Laceration of left hand Instructions: ED Laceration, Hand: All Closures Prescriptions: No Action multivitamin,kh-vkbj-ccyfgykx tablet tablet 1 tab PO QDAY pantoprazole 40 mg tablet,delayed release (DR/EC) 40 mg PO DAILY Qty: 30 3RF meloxicam 15 mg tablet PO DAILY Patient Comments: TAKE 1 TABLET BY MOUTHGONCE DAILYR tadalafil 5 mg tablet PO DAILY Patient Comments: TAKE 1 TABLET BY MOUTHCONCE DAILY Primary Care Provider: Michel Page Referrals: Michel Page MD [Primary Care Provider] - 7 Days for suture removal Disposition Disposition: Home, Self Care
== END 2023-01-28 16:01 | disposition home or self-care (01) ==
PROVIDERS: Emergency Provider Emergency Medicine; PCP Family Medicine; Visit Provider Emergency Medicine
DX: S61.412A Laceration without foreign body of left hand, initial encounter (principal); W26.0XXA Contact with knife, initial encounter; Z23 Encounter for immunization
CPT/HCPCS: 12002; 90471; 90715; 99283

== ENCOUNTER → 2023-04-22 | Outpatient (CLI) | payer OTHER, SELFPAY ==
[2023-04-22 17:40] LABS: PSA,Total- Diagnostic < 0.01 ng/mL (0.0-4.0)
== END | disposition home or self-care (01) ==
LOC: LAB 16:18
PROVIDERS: PCP Family Medicine; Referring Provider Urology; Visit Provider Urology
DX: C61 Malignant neoplasm of prostate (principal)
CPT/HCPCS: 36415; 84153

== ENCOUNTER 2023-07-19 01:57 | Emergency (ER) | payer OTHER, SELFPAY ==
[2023-07-19 01:58] VITALS: BP 134/83; PULSE 94; RESP 18; TEMP 36.6; O2SAT 96; BMI 33.1
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
== END 2023-07-19 03:14 | disposition home or self-care (01) ==
PROVIDERS: Emergency Provider Emergency Medicine; PCP Family Medicine; Visit Provider Emergency Medicine
DX: S01.81XA Laceration without foreign body of other part of head, initial encounter (principal); G47.33 Obstructive sleep apnea (adult) (pediatric); W20.8XXA Other cause of strike by thrown, projected or falling object, initial encounter
CPT/HCPCS: 12002; 99282

== ENCOUNTER → 2023-10-21 | Outpatient (CLI) | payer OTHER, SELFPAY ==
[2023-10-21 16:58] LABS: PSA,Total- Diagnostic 0.02 ng/mL (0.0-4.0)
== END | disposition home or self-care (01) ==
LOC: LAB 16:11
PROVIDERS: PCP Family Medicine; Referring Provider Urology; Visit Provider Urology
DX: C61 Malignant neoplasm of prostate (principal)
CPT/HCPCS: 36415; 84153

== ENCOUNTER → 2024-01-20 | Outpatient (CLI) | payer OTHER, SELFPAY | END | disposition home or self-care (01) | LOC: LAB 16:42 | PROVIDERS: PCP Family Medicine; Referring Provider Nurse Practitioner; Visit Provider Nurse Practitioner | DX: C61 Malignant neoplasm of prostate (principal) ==

== ENCOUNTER → 2024-01-21 | Outpatient (CLI) | payer OTHER, SELFPAY ==
[2024-01-21 14:40] LABS: PSA,Total- Diagnostic 0.03 ng/mL (0.0-4.0)
== END | disposition home or self-care (01) ==
LOC: LAB 13:38
PROVIDERS: PCP Family Medicine; Referring Provider Nurse Practitioner; Visit Provider Nurse Practitioner
DX: C61 Malignant neoplasm of prostate (principal)
CPT/HCPCS: 84153

== ENCOUNTER → 2024-04-22 | Outpatient (CLI) | payer OTHER, SELFPAY ==
[2024-04-22 10:55] LABS: PSA,Total- Diagnostic 0.04 ng/mL (0.0-4.0)
== END | disposition home or self-care (01) ==
LOC: LAB 08:27
PROVIDERS: PCP Family Medicine; Referring Provider Urology; Visit Provider Urology
DX: R97.21 Rising PSA following treatment for malignant neoplasm of prostate (principal)
CPT/HCPCS: 36415; 84153

== ENCOUNTER → 2024-08-24 | Outpatient (CLI) | payer BC, SELFPAY ==
[2024-08-24 17:56] LABS: PSA,Total- Diagnostic 0.05 ng/mL (0.00-4.00)
== END | disposition home or self-care (01) ==
LOC: LAB 16:24
PROVIDERS: PCP Family Medicine; Referring Provider Urology; Visit Provider Urology
DX: C61 Malignant neoplasm of prostate (principal)
CPT/HCPCS: 36415; 84153

== ENCOUNTER → 2025-02-22 | Outpatient (CLI) | payer BC, SELFPAY ==
[2025-02-22 13:31] LABS: PSA,Total- Diagnostic 0.09 ng/mL (0.00-4.00)
== END | disposition home or self-care (01) ==
LOC: LAB 12:04
PROVIDERS: PCP Family Medicine; Referring Provider Urology; Visit Provider Urology
DX: C61 Malignant neoplasm of prostate (principal)
CPT/HCPCS: 36415; 84153